=== PATIENT | female | born 1975 | race Caucasian/White ===

== ENCOUNTER 2022-06-27 18:15 | Emergency (ER) | payer SELFPAY ==
[~2022-06-27] VITALS: Ht 167.6 cm; Wt 90.7 kg
[2022-06-27] MEDS ORDERED: ASPIRIN 325 MG TABLET PO ONE (18:30)
[2022-06-27] MEDS ORDERED: NITROGLYCERIN 0.4 MG/TAB BOTTLE SL ONE (18:30)
[2022-06-27 19:01] LABS: CARBON DIOXIDE 29 mmol/L (21-32); CHLORIDE 101 mmol/L (98-107); GLUCOSE 111 mg/dL (74-106); POTASSIUM 3.2 mmol/L (3.5-5.1); SODIUM SERUM 136 mmol/L (136-145); UREA NITROGEN, BLOOD 17 mg/dL (7-18)
[2022-06-27] MEDS ORDERED: NITROGLYCERIN 0.4 MG/TAB BOTTLE ONE (19:09)
[2022-06-27] MEDS ORDERED: ASPIRIN 325 MG TABLET ONE (19:10)
--- NOTE | 2022-06-27 19:23 | NUR ---
BLOOD SAMPLE OBTAINED
--- NOTE | 2022-06-27 19:30 | NUR ---
URINE SAMPLE AND COVID SAMPLE OBTAINED, PLACED IN DROP-OFF BOX
[2022-06-27 20:23] LABS: BASOPHILS % (AUTO) 0.4 % (0.0-2.0); EOSINOPHILS % (AUTO) 1.5 % (0.0-6.0); HEMATOCRIT 42 % (33-45); HEMOGLOBIN 13.9 g/dL (11.5-14.8); LYMPHOCYTES # (AUTO) 2.6 K/uL (0.8-4.8); LYMPHOCYTES % (AUTO) 29.8 % (20.0-44.0); MEAN CORPUSCULAR HGB CONC 33 g/dl (31.0-36.0); MEAN CORPUSCULAR VOLUME 85 fL (82-100); MONOCYTES # (AUTO) 0.5 K/uL (0.1-1.30); MONOCYTES % (AUTO) 6.3 % (2.0-12.0); NEUTROPHILS # (AUTO) 5.4 K/uL (1.8-8.9); PLATELET COUNT (AUTO) 324 K/uL (150-450); RED BLOOD CELL COUNT(AUTO) 4.89 MIL/uL (4.0-5.2); WHITE BLOOD COUNT (AUTO) 8.8 K/uL (4.3-11.0)
--- NOTE | 2022-06-27 20:30 | NUR ---
PT IS ALERT AND ORIENTED , RESTING COMFORTABLY IN BED. DENIES ANY PAIN AT THIS TIME. CONNECTED TO MONITOR. WILL CONTINUE TO MONITOR
--- NOTE | 2022-06-27 21:40 | NUR ---
IV removed. Catheter intact and site benign. Pressure and 4x4 applied to site. No bleeding noted.
[2022-06-27 21:41] VITALS: BP 131/61
--- NOTE | 2022-06-27 21:41 | NUR ---
Patient discharged to home in stable condition. Written and verbal after care instructions given. Patient verbalizes understanding of instruction.
== END 2022-06-27 21:43 | disposition home or self-care (01) ==
LOC: ER 18:18
DX: R07.89 Other chest pain (principal)
CPT/HCPCS: 36415; 71045-TC; 80048-TC; 83880; 84484-TC; 85025-TC